=== PATIENT | male | born 1980 | race Two or more races ===

== ENCOUNTER 2018-12-26 10:11 | Emergency (ER) | payer MEDICAID ==
[~2018-12-26] VITALS: Ht 167.6 cm; Wt 86.0 kg
[2018-12-26] MEDS ORDERED: KETOROLAC 30MG/ML VIAL IV STA (10:29)
[2018-12-26] MEDS ORDERED: ONDANSETRON HCL 4MG/2ML INJ IV STA (10:29)
[2018-12-26] MEDS ORDERED: SODIUM CHLORIDE 0.9% 1,000 ML IV ONE (10:29)
[2018-12-26] MEDS ORDERED: MAGNESIUM/ALUMINUM HYDROXIDE/SIMETHICONE 30ML UDC PO ONE (10:30)
[2018-12-26] MEDS ORDERED: VISCOUS LIDOCAINE 2% 15 ML UDC PO ONE (10:30)
[2018-12-26] MEDS ORDERED: FAMOTIDINE 20MG/2ML VIAL IV ONE (10:30)
[2018-12-26 10:48] LABS: BASOPHILS % 0.4 % (0.0-2.0); EOSINOPHILS % 0.1 % (0.0-5.0); HEMATOCRIT. 47.3 % (42.0-52.0); HEMOGLOBIN. 16.3 g/dL (14.0-18.0); LYMPHOCYTES % 14.7 % (20.0-50.0); MEAN CORPUSCULAR HEMOGLOBIN 29.2 pg (28.0-32.0); MEAN CORPUSCULAR VOLUME 84.5 fL (80.0-94.0); MEAN PLATELET VOLUME 7.9 fl (7.4-10.4); MONOCYTES % 10.3 % (2.0-8.0); NEUTROPHILS % 74.5 % (40.0-76.0); PLATELET 252 x1000/uL (130-400)
[2018-12-26 10:54] LABS: CHLORIDE 100 mEq/L (98-107)
[2018-12-26 10:56] LABS: ETHANOL BLOOD 192 mg/dL
[2018-12-26 12:02] LABS: CLARITY URINE CLEAR (CLEAR); COLOR URINE YELLOW (YELLOW); KETONES URINE TRACE (NEGATIVE); LEUKOCYTE ESTERASE URINE NEGATIVE (NEGATIVE); NITRITE URINE NEGATIVE (NEGATIVE); OCCULT BLOOD URINE NEGATIVE (NEGATIVE); PROTEIN URINE NEGATIVE (NEGATIVE); SPECIFIC GRAVITY URINE 1.019 (1.005-1.030)
[2018-12-26 12:28] LABS: *AMPHETAMINES SCREEN URINE NEGATIVE (NEGATIVE); *BARBITURATES SCREEN URINE NEGATIVE (NEGATIVE); *BENZODIAZEPINES SCREEN URINE NEGATIVE (NEGATIVE); *COCAINE SCREEN URINE NEGATIVE (NEGATIVE); METHADONE URINE SCREEN NEGATIVE (NEGATIVE); OPIATES URINE SCREEN NEGATIVE (NEGATIVE)
[2018-12-26 12:29] LABS: CANNABINOID URINE SCREEN NEGATIVE (NEGATIVE)
[2018-12-26] MEDS ORDERED: ONDANSETRON HCL 4MG/2ML INJ IV ONE (12:30)
[2018-12-26 12:50] LABS: PHENCYCLIDINE URINE SCREEN NEGATIVE (NEGATIVE)
[2018-12-26 13:06] VITALS: BP 135/88
== END 2018-12-26 13:08 | disposition home or self-care (01) ==
LOC: ER 10:32
DX: R10.13 Epigastric pain (principal); F10.129 Alcohol abuse with intoxication, unspecified; R79.89 Other specified abnormal findings of blood chemistry; R11.10 Vomiting, unspecified
CPT/HCPCS: 36415; 71045; 76705; 80053; 80305; 80320; 81003; 83690; 85025; 96361; 96374; 96375; 96376; 99284; J1885; J2405; J3490; J7030; Z7610; G0480

== ENCOUNTER 2020-03-18 12:34 | Inpatient (IN) | payer SELFPAY ==
[~2020-03-18] VITALS: Ht 165.1 cm; Wt 91.2 kg
[2020-03-18 13:25] LABS: BASOPHILS % 0.2 % (0.0-2.0); HEMATOCRIT. 51.1 % (42.0-52.0); HEMOGLOBIN. 17.6 g/dL (14.0-18.0); MEAN CORPUSCULAR HEMOGLOBIN 29.4 pg (28.0-32.0); MEAN CORPUSCULAR VOLUME 85.6 fL (80.0-94.0); MEAN PLATELET VOLUME 7.8 fl (7.4-10.4); MONOCYTES % 4.4 % (2.0-8.0); NEUTROPHILS % 62.4 % (40.0-76.0); PLATELET 228 x1000/uL (130-400); RED BLOOD CELL COUNT 5.97 mill/uL (4.7-6.1); RED CELL DISTRIBUTION WIDTH 14.1 % (11.6-14.6)
[2020-03-18 13:28] LABS: CHLORIDE 93 mEq/L (98-107)
[2020-03-18 13:36] LABS: ETHANOL BLOOD 88 mg/dL
[2020-03-18 14:40] LABS: *BARBITURATES SCREEN URINE NEGATIVE (NEGATIVE)
[2020-03-18] MEDS ORDERED: SODIUM CHLORIDE 0.9% 1,000 ML IV ONE (14:40)
[2020-03-18 14:41] LABS: *BENZODIAZEPINES SCREEN URINE NEGATIVE (NEGATIVE); *COCAINE SCREEN URINE NEGATIVE (NEGATIVE); CANNABINOID URINE SCREEN NEGATIVE (NEGATIVE); METHADONE URINE SCREEN NEGATIVE (NEGATIVE); OPIATES URINE SCREEN NEGATIVE (NEGATIVE); PHENCYCLIDINE URINE SCREEN NEGATIVE (NEGATIVE)
[2020-03-18 14:42] LABS: *AMPHETAMINES SCREEN URINE NEGATIVE (NEGATIVE)
[2020-03-18] MEDS: ONDANSETRON HCL 4MG/2ML INJ IV PRN (16:37)
[2020-03-18] MEDS: SODIUM CHLORIDE 0.9% 1,000 ML IV SCH (16:37)
[2020-03-18] MEDS: FOLIC ACID 1 MG, THIAMINE HCL 100 MG, MVI, ADULT NO.1 10 ML in DEXTROSE 5% WATER 1,000 ML IV SCH ×4 (16:50)
[2020-03-18 17:32] LABS: HEPATITIS B SURFACE ANTIGEN NEGATIVE
[2020-03-18 18:02] LABS: HEPATITIS A AB IGM NEGATIVE (NEGATIVE)
[2020-03-18 22:30] VITALS: BP 146/91
[2020-03-18] MEDS: LORAZEPAM 2MG/ML CPJ IV PRN (23:22)
[2020-03-19] VITALS: BP 146/91
[2020-03-19] MEDS: ONDANSETRON HCL 4MG/2ML INJ IV PRN ×2 (00:33→08:11)
[2020-03-19] MEDS: SODIUM CHLORIDE 0.9% 1,000 ML IV SCH ×2 (01:21→15:11)
[2020-03-19] MEDS ORDERED: IPRATROPIUM/ALBUTEROL 0.5-3(2.5)MG/3ML NEB HHN PRN (02:00)
[2020-03-19] MEDS: METOPROLOL TARTRATE 50MG TABLET PO SCH ×2 (02:10→16:53)
[2020-03-19] MEDS: CHLORDIAZEPOXIDE 25MG CAPSULE PO SCH ×4 (06:00→22:26)
[2020-03-19 07:23] LABS: BASOPHILS % 0.2 % (0.0-2.0); HEMOGLOBIN. 15.1 g/dL (14.0-18.0); LYMPHOCYTES % 16.7 % (20.0-50.0); MEAN CORPUSCULAR HEMOGLOBIN 29.6 pg (28.0-32.0); MEAN CORPUSCULAR VOLUME 83.9 fL (80.0-94.0); MEAN PLATELET VOLUME 7.6 fl (7.4-10.4); MONOCYTES % 6.9 % (2.0-8.0); NEUTROPHILS % 76.2 % (40.0-76.0); PLATELET 202 x1000/uL (130-400); RED BLOOD CELL COUNT 5.12 mill/uL (4.7-6.1)
[2020-03-19 07:35] LABS: CHLORIDE 91 mEq/L (98-107)
[2020-03-19 07:42] LABS: PHOSPHORUS 2.7 mg/dL (2.5-4.9)
[2020-03-19 08:00] VITALS: BP 142/96
[2020-03-19] MEDS: PANTOPRAZOLE SODIUM 40 MG/VIAL IV SCH (08:11)
[2020-03-19] MEDS: LORAZEPAM 2MG/ML CPJ IV PRN ×2 (10:20→22:26)
[2020-03-19] MEDS: FOLIC ACID 1 MG, THIAMINE HCL 100 MG, MVI, ADULT NO.1 10 ML in DEXTROSE 5% WATER 1,000 ML IV SCH ×4 (11:35)
[2020-03-19] MEDS ORDERED: POTASSIUM CHLORIDE 20MEQ TABLET SR PO SCH (13:00)
[2020-03-19 13:57] VITALS: BP 131/94
[2020-03-19] MEDS: THIAMINE HCL 100MG TABLET PO SCH (15:20)
[2020-03-19] MEDS: FOLIC ACID 1MG TABLET PO SCH (15:21)
[2020-03-19 16:00] VITALS: BP 136/93
[2020-03-19 20:00] VITALS: BP 125/80
[2020-03-20] VITALS: BP 118/66
[2020-03-20 04:00] VITALS: BP 115/66
[2020-03-20] MEDS: CHLORDIAZEPOXIDE 25MG CAPSULE PO SCH ×2 (05:50→14:50)
[2020-03-20 05:54] LABS: CHLORIDE 99 mEq/L (98-107)
[2020-03-20 06:12] LABS: BASOPHILS % 0.2 % (0.0-2.0); EOSINOPHILS % 0.2 % (0.0-5.0); HEMOGLOBIN. 15.6 g/dL (14.0-18.0); LYMPHOCYTES % 25.1 % (20.0-50.0); MEAN CORPUSCULAR HEMOGLOBIN 29.8 pg (28.0-32.0); MEAN CORPUSCULAR VOLUME 85.8 fL (80.0-94.0); MEAN PLATELET VOLUME 7.6 fl (7.4-10.4); NEUTROPHILS % 67.5 % (40.0-76.0); PLATELET 162 x1000/uL (130-400); RED BLOOD CELL COUNT 5.24 mill/uL (4.7-6.1); RED CELL DISTRIBUTION WIDTH 13.9 % (11.6-14.6)
[2020-03-20 08:00] VITALS: BP 155/94
[2020-03-20] MEDS ORDERED: MULTIVITAMINS,THER W-MINERALS TABLET PO SCH (09:00)
[2020-03-20] MEDS: METOPROLOL TARTRATE 50MG TABLET PO SCH (09:40)
[2020-03-20] MEDS: PANTOPRAZOLE SODIUM 40 MG/VIAL IV SCH (09:40)
[2020-03-20] MEDS: SODIUM CHLORIDE 0.9% 1,000 ML IV SCH (09:40)
[2020-03-20] MEDS: FOLIC ACID 1MG TABLET PO SCH (09:40)
[2020-03-20] MEDS: THIAMINE HCL 100MG TABLET PO SCH (09:41)
[2020-03-20 12:00] VITALS: BP 147/97
[2020-03-20 15:24] VITALS: BP 147/97
[2020-03-21] MEDS ORDERED: FAMOTIDINE 20MG TABLET PO SCH (09:00)
== END 2020-03-20 16:45 | disposition home or self-care (01) | DRG 426 ==
LOC: ER 12:34 → 8WST 14:53 → ENRESERV 21:10
PROVIDERS: ADMIT Internal Medicine; ATTEND Internal Medicine
DX: E87.1 Hypo-osmolality and hyponatremia (principal); E87.8 Other disorders of electrolyte and fluid balance, not elsewhere classified; E44.0 Moderate protein-calorie malnutrition; F10.239 Alcohol dependence with withdrawal, unspecified; R73.03 Prediabetes; Y90.4 Blood alcohol level of 80-99 mg/100 ml; R74.0 Nonspecific elevation of levels of transaminase and lactic acid dehydrogenase [LDH]; Z68.33 Body mass index [BMI] 33.0-33.9, adult; Z71.41 Alcohol abuse counseling and surveillance of alcoholic
CPT/HCPCS: 36415; 80048; 80053; 80305; 80320; 82140; 82962; 83036; 83735; 84100; 85025; 86705; 86709; 86803; 87340; 93005; 99285; C9113; J2060; J2405; J3411; J3490; J7030; J7070; G0480